=== PATIENT | female | born 1990 | race Caucasian/White ===

== ENCOUNTER 2017-09-03 18:46 | Emergency (ER) | payer OTHER, MEDICAID ==
[~2017-09-03] VITALS: Ht 160 cm; Wt 86.2 kg
[~2017-09-03 18:46] MED LIST: IBUPROFEN 600600 M1 PO; IBUPROFEN 800800 M1 PO; VALTREX 500 MG500 MG PO
[2017-09-03] MEDS ORDERED: FLEXERIL PO (19:00)
[2017-09-03 19:32] VITALS: BP 127/81
== END 2017-09-03 19:33 | disposition home or self-care (01) ==
LOC: M.ERS 18:46
DX: S49.82XA Other specified injuries of left shoulder and upper arm, initial encounter (principal); Y04.8XXA Assault by other bodily force, initial encounter; Y93.89 Activity, other specified; Y92.89 Other specified places as the place of occurrence of the external cause; Y99.8 Other external cause status

== ENCOUNTER 2017-11-05 07:49 | Inpatient (IN) | payer OTHER, MEDICAID ==
[~2017-11-05] VITALS: Ht 160 cm; Wt 91.6 kg
[2017-11-05 07:49] VITALS: BP 131/102
[~2017-11-05 07:49] MED LIST changes: +FLEXERIL PO
[2017-11-05 08:05] LABS: ABSOLUTE EOSINOPHILS 0.1 thou/uL (0.0-0.7); ABSOLUTE LYMPHOCYTES 0.9 thou/uL (0.8-5.3); ABSOLUTE MONOCYTES 0.6 thou/uL (0.0-1.2); ABSOLUTE NEUTROPHILS 6.9 thou/uL (1.6-8.1); BASOPHILS 0.2 %; EOSINOPHILS 1.1 %; HEMATOCRIT 43.7 % (37.0-47.0); LYMPHOCYTES 10.8 %; MCH 28.6 pg (26.0-34.0); MCHC 34.4 g/dL (28.0-37.0); MONOCYTES 6.8 %; MPV 9.2 fl. (7.2-11.1); NUCLEATED RBCS 0 /100WBC; PLATELET COUNT* 309 thou/uL (150-400); POLYS 81.1 %; RBC 5.27 mil/uL (4.20-5.00); WBC 8.5 thou/uL (4.0-11.0)
[2017-11-05] MEDS ORDERED: PRILOSEC OTC20 MG PO (08:11)
[2017-11-05 08:15] LABS: ANION GAP 15 mmol/L (7-16); BUN 18 mg/dL (7-18); CALCIUM 9.1 mg/dL (8.5-10.1); CHLORIDE 103 mmol/L (98-107); CO2 22 mmol/L (21-32); GLUCOSE 139 mg/dL (70-99); POTASSIUM 3.9 mmol/L (3.5-5.1); SODIUM 140 mmol/L (136-145)
[2017-11-05 08:22] LABS: ALBUMIN 3.8 g/dL (3.4-5.0); ALKALINE PHOSPHATASE 89 U/L (46-116); LIPASE 100 U/L (73-393); SGOT 104 U/L (15-37); SGPT 138 U/L (30-65); TOTAL BILIRUBIN 0.4 mg/dL (<0.1-1.0); TOTAL PROTEIN 7.9 g/dL (6.4-8.2); TROPONIN-I LEVEL <0.06 ng/mL (<0.06)
[2017-11-05] MEDS ORDERED: ZOFRAN ODT4 MG PO (10:01)
[2017-11-05] MEDS ORDERED: BENTYL 20 MG TA20 M1 PO (10:01)
[2017-11-05 11:20] LABS: URINE BILIRUBIN NEGATIVE (Negative); URINE BLOOD NEGATIVE (Negative); URINE CLARITY CLEAR; URINE COLOR YELLOW; URINE GLUCOSE-RANDOM NEGATIVE (Negative); URINE KETONES NEGATIVE (Negative); URINE LEUKOCYTES-REFLEX NEGATIVE (Negative); URINE NITRITE-REFLEX NEGATIVE (Negative); URINE PROTEIN NEGATIVE (Negative); URINE SPECIFIC GRAVITY <= 1.005 (1.005-1.030); URINE UROBILINOGEN 0.2 E.U./dl (0.2-1.0)
[2017-11-05 11:28] LABS: AMP/METHAMP Negative (Negative); BARBITURATES Negative (Negative); BENZODIAZEPINES Negative (Negative); COCAINE Negative (Negative); METHADONE Negative (Negative); OPIATES Negative (Negative); PCP Negative (Negative); THC Negative (Negative)
--- NOTE | 2017-11-05 16:01 | EKG ---
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
[2017-11-05 18:05] VITALS: BP 111/66
[2017-11-05 18:20] VITALS: BP 111/66
[2017-11-05 18:38] VITALS: BP 113/74
[2017-11-05 20:00] VITALS: BP 116/74
[2017-11-06] VITALS (7 sets, daily range): BP systolic 87–134; BP diastolic 47–88
[2017-11-06 05:45] LABS: HEMATOCRIT 39.4 % (37.0-47.0); HEMOGLOBIN 13.1 gm/dL (12.0-15.0); MCH 28.4 pg (26.0-34.0); MCHC 33.3 g/dL (28.0-37.0); MCV 85.2 fL (80.0-100.0); MPV 9.4 fl. (7.2-11.1); RBC 4.62 mil/uL (4.20-5.00); WBC 3.6 thou/uL (4.0-11.0)
[2017-11-06 06:08] LABS: CALCIUM 8.3 mg/dL (8.5-10.1); CREATININE 0.8 mg/dL (0.6-1.3); MAGNESIUM 2.2 mg/dL (1.8-2.4); POTASSIUM 4.2 mmol/L (3.5-5.1); TOTAL BILIRUBIN 0.2 mg/dL (<0.1-1.0); TOTAL PROTEIN 5.7 g/dL (6.4-8.2)
--- NOTE | 2017-11-06 16:00 | 2DMMODE ---
[place] [address] 2 D/M-MODE ECHOCARDIOGRAM Name: AARON DUQUE Room: [address] IN [facility]#: [id number] Admission: 11/05/17 Attend Phys: Daniel Lopez, Discharge: Date of : 89 Date of Service: 11/06/17 1559 Report #: [id number] THIS REPORT FOR: //name// APPROVED REPORT Study performed: 11/06/2017 11:41:32 EXAM: Comprehensive 2D, Doppler, and color-flow Echocardiogram Patient Location: In-Patient Room #: [facility] Status: routine BSA: 1.91 HR: 62 bpm BP: 107/61 mmHg Rhythm: NSR Other Information Study Quality: Good Indications Dyspnea Syncope NAUSEA 2D Dimensions LVEF(%): 60.67 (>50%) IVSd: 10.08 (7-11mm) LVOT Diam: 18.18 (18-24mm) LVDd: 47.50 mm PWd: 10.08 (7-11mm) Ascending Ao: 25.65 (22-36mm) LVDs: 32.10 (25-40mm) Aortic Root: 24.83 mm Smith's LVEF: 60.67 % Volumes Left Atrial Volume (Systole) LA ESV Index: 24.70 mL/m2 Aortic Valve AoV Peak Kaushik.: 1.28 m/s AO Peak Gr.: 6.59 mmHg LVOT Max P.94 mmHg AO Mean Gr.: 3.58 mmHg LVOT Mean P.86 mmHg LVOT Max V: 0.99 m/s AO V2 VTI: 24.65 cm LVOT Mean V: 0.62 m/s MIGUELITO (VTI): 2.18 cm2 LVOT V1 VTI: 20.69 [place] [address] 2 D/M-MODE ECHOCARDIOGRAM Name: AARON DUQUE Room: [address] IN [facility]#: [id number] Admission: 11/05/17 Attend Phys: Daniel Lopez, Discharge: Date of : 89 Date of Service: 11/06/17 1559 Report #: [id number] Mitral Valve E/A Ratio: 1.69 MV Decel. Time: 192.69 ms MV E Max Kaushik.: 0.84 m/s MV PHT: 55.88 ms MVA (PHT): 3.94 cm2 TDI E/Lateral E': 4.67 E/Medial E': 8.40 Medial E' Kaushik.: 0.10 m/s Lateral E' Kaushik.: 0.18 m/s Pulmonary Valve PV Peak Kaushik.: 0.90 m/s PV Peak Gr.: 3.27 mmHg Left Ventricle The left ventricle is normal size. There is normal LV segmental wall motion. There is normal left ventricular wall thickness. Left ventricular systolic function is normal. The left ventricular ejection fraction is within the normal range. LVEF is 60-65%. The left ventricular diastolic function is normal. Right Ventricle The right ventricle is normal size. The right ventricular systolic function is normal. Atria The left atrium size is normal. The right atrium size is normal. Aortic Valve The aortic valve is normal in structure. No aortic regurgitation is present. There is no aortic valvular stenosis. Mitral Valve The mitral valve is normal in structure. There is no mitral valve regurgitation noted. No evidence of mitral valve stenosis. Tricuspid Valve The tricuspid valve is normal in structure. Unable to assess PA pressure. Trace tricuspid regurgitation. Pulmonic Valve The pulmonary valve is normal in structure. Mild [place] [address] 2 D/M-MODE ECHOCARDIOGRAM Name: AARON DUQUE Avelino Room: [address] IN [facility]#: [id number] Admission: 11/05/17 Attend Phys: Daniel Lopez, Discharge: Date of : 89 Date of Service: 11/06/17 1559 Report #: [id number] Great Vessels The aortic root is normal in size. IVC is normal in size and collapses with >50% inspiration Pericardium There is no pericardial effusion. <Conclusion> The left ventricle is normal size. There is normal left ventricular wall thickness. Left ventricular systolic function is normal. The left ventricular ejection fraction is within the normal range. LVEF is 60-65%. The left ventricular diastolic function is normal. The right ventricle is normal size. The left atrium size is normal. The aortic valve is normal in structure. The mitral valve is normal in structure. The tricuspid valve is normal in structure. IVC is normal in size and collapses with >50% inspiration There is no pericardial effusion. There is normal LV segmental wall motion. <ELECTRONICALLY SIGNED> By: Sotero Romeo MD, FACC 11/06/17 1559 1559 1559 Sotero Romeo MD, FACC /INF
[2017-11-07 04:58] LABS: CALCIUM 8.2 mg/dL (8.5-10.1); CREATININE 0.7 mg/dL (0.6-1.3); POTASSIUM 4.1 mmol/L (3.5-5.1); TOTAL BILIRUBIN 0.3 mg/dL (<0.1-1.0); TOTAL PROTEIN 5.6 g/dL (6.4-8.2)
[2017-11-07 08:40] VITALS: BP 120/61
[2017-11-07 14:50] VITALS: BP 112/60
[2017-11-07 21:00] VITALS: BP 115/62
[2017-11-08 07:10] LABS: HEPATITIS B SURFACE AG Negative (Negative)
[2017-11-08 08:30] VITALS: BP 96/43
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
[2017-11-08 17:00] VITALS: BP 108/66
[2017-11-08 19:40] VITALS: BP 112/58
[2017-11-09 07:45] VITALS: BP 117/72
[2017-11-09 08:10] VITALS: BP 112/58
[2017-11-09] MEDS ORDERED: REGLAN 5 MG TAB5 MG PO (09:06)
[2017-11-09] MEDS ORDERED: ZOFRAN ODT4 MG PO (09:06)
--- NOTE | 2017-11-23 13:09 | CON ---
[address] [address] CONSULTATION Name: AARON DUQUE Room: [address]#: [id number] Admission: 11/05/17 Attend Phys: Daniel Lopez MD Discharge: 11/09/17 Date of : 92 Report #: [id number] THIS REPORT FOR: //name// CC: Daniel Sommers DATE OF SERVICE: 11/06/2017 ADDENDUM This is a 26-year-old female with 2-week history of nausea, vomiting and epigastric pain. She reports that she is usually constipated, but this does not worsen her symptoms of nausea, vomiting. The patient complains of epigastric pain, but denies any dysphagia or dyspepsia. She denies any previous history of this type of symptoms. We will go ahead and perform an upper endoscopy. If this was negative, we may consider a gastric emptying test. Note that the patient has history of gallbladder surgery due to gallbladder sludge about 3 years ago. <ELECTRONICALLY SIGNED> By: Jackie Jones MD 11/23/17 1309 1341 1836Jackie Jones MD /nt
--- NOTE | 2017-11-23 13:09 | CON ---
[address] [address] CONSULTATION Name: AARON DUQUE Room: [address]#: [id number] Admission: 11/05/17 Attend Phys: Daniel Lopez MD Discharge: 11/09/17 Date of : 89 Report #: [id number] THIS REPORT FOR: //name// CC: Daniel Sommers [facility] DICTATED BY: Bela Whatley [facility] DATE OF SERVICE: 11/06/2017 Please note at the time of this dictation, the patient was seen and physically examined by myself. REASON FOR CONSULTATION: Nausea, vomiting, abdominal pain. HISTORY OF PRESENT ILLNESS: This 26-year-old female presented to the Emergency Room after having a syncopal episode yesterday morning while at work. She states that she has been sick to her stomach for the past several days; however, she tells me for the last 2 weeks, she has had nausea, vomiting and abdominal pain and a slight cough with some so called chest discomfort during this timeframe. She states it is nonradiating at this time. She denies any fever, chills or any diarrhea. The patient states she had an upper scope done many years ago up in [place] when she was still in school. She does not recall what it showed at this time. In talking with the patient, she mentions that she has a history of migraines and has been having more migraines here lately than what she has had in the past. The patient did have her gallbladder out years ago related to sludge. She states with her nausea and vomiting, she denies any hematemesis or coffee-ground emesis at this time and denies any NSAID use. She states her bowels are soft and formed and move daily and no issues with diarrhea. ALLERGIES: No known drug allergies. MEDICATIONS: From home include Prilosec 20 mg daily. PAST SURGICAL HISTORY: Cholecystectomy, tonsil and adenoidectomy, and tubal ligation. FAMILY HISTORY: Negative. SOCIAL HISTORY: Denies any tobacco or illegal drug use and alcohol use is only socially on occasion. REVIEW OF SYSTEMS: Twelve-point review of systems essentially negative except what [place] [address] CONSULTATION Name: AARON DUQUE Room: [address]#: [id number] Admission: 11/05/17 Attend Phys: Daniel Lopez MD Discharge: 11/09/17 Date of : 89 Report #: [id number] PHYSICAL EXAMINATION: VITAL SIGNS: Temperature 36.9, pulse 84, respirations 18, blood pressure 95/53. HEART: Regular rate and rhythm. LUNGS: Clear. ABDOMEN: Soft, positive bowel sounds in all 4 quadrants with some mild epigastric tenderness noted to palpation. LABORATORY DATA: Hemoglobin 13.1, hematocrit 39.4, white count is 3.6, platelets 251. Sodium 144, potassium 4.2, chloride 109, CO2 27, BUN is 8, creatinine 0.8, GFR is 88 and glucose is 93. LFTs: Total bilirubin 0.2, alkaline phosphatase 68, ALT is [address] is 58[address] CT of the abdomen and pelvis essentially negative. Chest x-ray negative as well. IMPRESSION: 1. Nausea and vomiting for 2 weeks. 2. Abdominal pain. 3. History of migraines and more frequently in the last month or so. PLAN: 1. Scopolamine patch to help with the nausea and vomiting. 2. Ultrasound of the abdomen. 3. Consider EGD if all is negative above and plans for tomorrow. 4. Further recommendations to be made after the above have been noted. Thank you for allowing us to participate in this patient's care. Please do not hesitate to call with any questions in regard to this consult. <ELECTRONICALLY SIGNED> By: Jackie Jones MD 11/23/17 1309 1324 1843Jackie Jones MD /nt
--- NOTE | 2018-01-24 13:12 | PATH ---
[facility] [address] [place] [address] PATHOLOGY RPT PROCEDURE Name: AARON DUQUE Room: [address] IN M.R.#: [id number] Admission: 11/05/17 Date of : 89 Discharge: 11/09/17 Report #: [id number] Path Case #: [id number] [facility] Accession Number: [id number] No. of containers..01 Tissue . 01 Material submitted: . BIOPSY,SUBMUCOSAL NODULE DUODENUM . 02 Diagnosis: Duodenal mucosa and submucosa (biopsy submucosal nodule): - Moderate subacute and chronic inflammation of lamina propria, villus height to width ratio is 3-4:1. - Focal submucosal glandular hyperplasia. LBQ/11/10/2017 . 02 Comment: We find no evidence of high grade dysplasia or malignancy. (SALVATORE:wilfred; 11/09/2017) . 02 Electronically signed: . Eulogio Ellsworth MD, Pathologist NPI- [id number] . 01 Gross description: . Received in formalin labeled "Duque, Aaron, submucosal nodule duodenum biopsy" and consists of 2 soft luna tissue fragments each averaging 0.2 cm. They are entirely submitted as A1.(PASQUALE; 11/08/2017) /QMS . 02 Pathologist provided ICD-10: K29.80 . 02 CPT . 536827 A duplicate report has been generated due to demographic updates. Performed at: 01 [facility] [address] [id number] MD Aidan Beverly MD Phone: [phone] Performed at: [address] [id number] MD Eulogio Ellsworth MD Phone: [phone]
== END 2017-11-09 10:55 | disposition home or self-care (01) | DRG 312 ==
LOC: M.ERS 07:49 → M.TBA-ER 11:36 → M.2W 18:34 → M.3W 11-06 17:50
PROVIDERS: Emergency Medicine Emergency Medical Services; ADMIT Internal Medicine
PROC: B24BZZ4 Ultrasonography of Heart with Aorta, Transesophageal (ICD-10-PCS; principal; 2017-11-06)
PROC: 0DB98ZX Excision of Duodenum, Via Natural or Artificial Opening Endoscopic, Diagnostic (ICD-10-PCS; 2017-11-07)
DX: R55 Syncope and collapse (principal); K52.9 Noninfective gastroenteritis and colitis, unspecified; G43.909 Migraine, unspecified, not intractable, without status migrainosus; K75.81 Nonalcoholic steatohepatitis (NASH); E86.9 Volume depletion, unspecified; K21.0 Gastro-esophageal reflux disease with esophagitis; K31.89 Other diseases of stomach and duodenum; K42.9 Umbilical hernia without obstruction or gangrene; E66.9 Obesity, unspecified; Z90.49 Acquired absence of other specified parts of digestive tract; Z87.11 Personal history of peptic ulcer disease; Z68.35 Body mass index [BMI] 35.0-35.9, adult; Z79.899 Other long term (current) drug therapy

== ENCOUNTER 2017-12-28 23:48 | Emergency (ER) | payer OTHER, MEDICAID ==
[~2017-12-28] VITALS: Ht 160 cm; Wt 86.2 kg
[~2017-12-28 23:48] MED LIST changes: +BENTYL 20 MG TA20 M1 PO; +PRILOSEC OTC20 MG PO; +REGLAN 5 MG TAB5 MG PO; +ZOFRAN ODT4 MG PO
[2017-12-29 00:48] VITALS: BP 119/68
== END 2017-12-29 00:49 | disposition home or self-care (01) ==
LOC: M.ERS 23:48
DX: S61.412A Laceration without foreign body of left hand, initial encounter (principal); E66.9 Obesity, unspecified; Z68.33 Body mass index [BMI] 33.0-33.9, adult; W26.0XXA Contact with knife, initial encounter; Y93.G1 Activity, food preparation and clean up; Y92.89 Other specified places as the place of occurrence of the external cause; Y99.8 Other external cause status

== ENCOUNTER 2018-04-02 19:27 | Emergency (ER) | payer MEDICAID ==
[~2018-04-02] VITALS: Ht 160 cm; Wt 88.0 kg
[2018-04-02 19:54] LABS: URINE BLOOD NEGATIVE (Negative); URINE CLARITY CLEAR; URINE COLOR YELLOW; URINE GLUCOSE-RANDOM NEGATIVE (Negative); URINE LEUKOCYTES-REFLEX TRACE (Negative); URINE NITRITE-REFLEX NEGATIVE (Negative); URINE PROTEIN NEGATIVE (Negative); URINE SPECIFIC GRAVITY 1.015 (1.005-1.030)
[2018-04-02 19:56] LABS: URINE BILIRUBIN 1+ (Negative); URINE KETONES 3+ (Negative)
[2018-04-02 19:57] LABS: ACETEST (KETONE CONFIRMATORY) Moderate (Negative); ICTOTEST (BILI CONFIRMATORY) Negative (Negative)
[2018-04-02 20:17] LABS: SQUAMOUS >10 Many /LPF (0-3)
[2018-04-02 20:18] LABS: BACTERIA-REFLEX 1-9 Few /HPF (None Seen); CASTS None Seen /LPF (None Seen); CRYSTALS None Seen /LPF (None Seen); MUCUS 4-6 Moderate strn/LPF (None Seen); URINE RBC 0-2 Rare /HPF (0-2); URINE WBC-REFLEX 0-5 Rare /HPF (0-5)
[2018-04-02 20:22] LABS: ABSOLUTE BASOPHILS 0.1 thou/uL (0.0-0.2); ABSOLUTE EOSINOPHILS 0.2 thou/uL (0.0-0.7); ABSOLUTE MONOCYTES 0.6 thou/uL (0.0-1.2); ABSOLUTE NEUTROPHILS 6.5 thou/uL (1.6-8.1); BASOPHILS 1.1 %; EOSINOPHILS 1.5 %; HEMATOCRIT 45.8 % (37.0-47.0); HEMOGLOBIN 15.4 gm/dL (12.0-15.0); LYMPHOCYTES 28.9 %; MCH 28.6 pg (26.0-34.0); MCHC 33.7 g/dL (28.0-37.0); MCV 84.9 fL (80.0-100.0); MONOCYTES 5.8 %; MPV 9.2 fl. (7.2-11.1); NUCLEATED RBCS 0 /100WBC; POLYS 62.7 %; RBC 5.39 mil/uL (4.20-5.00); RDW-CV 13.9 % (10.5-14.5); WBC 10.4 thou/uL (4.0-11.0)
[2018-04-02 20:55] LABS: PLATELET COUNT* 348 thou/uL (150-400)
[2018-04-02 21:00] LABS: CALCIUM 8.6 mg/dL (8.5-10.1); CREATININE 0.7 mg/dL (0.6-1.3); POTASSIUM 3.4 mmol/L (3.5-5.1)
[2018-04-02 21:09] LABS: ALBUMIN 3.6 g/dL (3.4-5.0); TOTAL BILIRUBIN 0.6 mg/dL (<0.1-1.0); TOTAL PROTEIN 7.5 g/dL (6.4-8.2)
[2018-04-02] MEDS ORDERED: ATIVAN1 MG PO (22:44)
[2018-04-02] MEDS ORDERED: ZOFRAN ODT4 MG PO (22:44)
[2018-04-02] MEDS ORDERED: BUTALB-APAP-CA1 EACH PO (22:44)
[2018-04-02 23:15] VITALS: BP 95/55
== END 2018-04-02 23:16 | disposition home or self-care (01) ==
LOC: M.ERS 19:27
PROVIDERS: Personal Emergency Response Attendant
DX: R10.9 Unspecified abdominal pain (principal); G43.909 Migraine, unspecified, not intractable, without status migrainosus; R19.7 Diarrhea, unspecified; R07.9 Chest pain, unspecified; E66.9 Obesity, unspecified; Z68.34 Body mass index [BMI] 34.0-34.9, adult; Z90.49 Acquired absence of other specified parts of digestive tract

== ENCOUNTER 2018-05-20 15:29 | Emergency (ER) | payer OTHER ==
[~2018-05-20] VITALS: Ht 160 cm; Wt 86.2 kg
[~2018-05-20 15:29] MED LIST changes: +ATIVAN1 MG PO; +BUTALB-APAP-CA1 EACH PO
[2018-05-20] MEDS ORDERED: LINZESS72 MCG PO (15:40)
[2018-05-20 16:05] LABS: ABSOLUTE BASOPHILS 0.1 thou/uL (0.0-0.2); ABSOLUTE LYMPHOCYTES 2.4 thou/uL (0.8-5.3); ABSOLUTE MONOCYTES 0.6 thou/uL (0.0-1.2); ABSOLUTE NEUTROPHILS 4.2 thou/uL (1.6-8.1); BASOPHILS 0.9 %; EOSINOPHILS 0.5 %; HEMATOCRIT 41.9 % (37.0-47.0); LYMPHOCYTES 32.4 %; MCH 28.4 pg (26.0-34.0); MCHC 33.5 g/dL (28.0-37.0); MCV 84.8 fL (80.0-100.0); MONOCYTES 8.3 %; MPV 8.8 fl. (7.2-11.1); NUCLEATED RBCS 0 /100WBC; PLATELET COUNT* 358 thou/uL (150-400); POLYS 57.9 %; RBC 4.94 mil/uL (4.20-5.00); WBC 7.3 thou/uL (4.0-11.0)
[2018-05-20 16:16] LABS: CALCIUM 9.7 mg/dL (8.5-10.1); CREATININE 0.9 mg/dL (0.6-1.3); POTASSIUM 3.3 mmol/L (3.5-5.1)
[2018-05-20 16:21] LABS: ALBUMIN 4.5 g/dL (3.4-5.0); TOTAL BILIRUBIN 0.5 mg/dL (<0.1-1.0); TOTAL PROTEIN 8.7 g/dL (6.4-8.2)
[2018-05-20 16:21] LABS: URINE BLOOD NEGATIVE (Negative); URINE CLARITY CLEAR; URINE COLOR YELLOW; URINE GLUCOSE-RANDOM NEGATIVE (Negative); URINE LEUKOCYTES-REFLEX NEGATIVE (Negative); URINE NITRITE-REFLEX NEGATIVE (Negative); URINE PROTEIN 1+ (Negative); URINE SPECIFIC GRAVITY 1.025 (1.005-1.030); URINE UROBILINOGEN 0.2 E.U./dl (0.2-1.0)
[2018-05-20 16:25] LABS: URINE BILIRUBIN 1+ (Negative); URINE KETONES 3+ (Negative)
[2018-05-20 16:28] LABS: ICTOTEST (BILI CONFIRMATORY) Negative (Negative)
[2018-05-20 18:17] VITALS: BP 100/68
== END 2018-05-20 18:18 | disposition home or self-care (01) ==
LOC: M.ERS 15:29
PROVIDERS: Nurse Practitioner Family
DX: R10.30 Lower abdominal pain, unspecified (principal); R19.7 Diarrhea, unspecified; R42 Dizziness and giddiness; K58.9 Irritable bowel syndrome, unspecified; E66.9 Obesity, unspecified; Z68.33 Body mass index [BMI] 33.0-33.9, adult; Z90.49 Acquired absence of other specified parts of digestive tract

== ENCOUNTER 2018-10-22 09:43 | Emergency (ER) | payer OTHER ==
[~2018-10-22] VITALS: Ht 160 cm; Wt 84.4 kg
[~2018-10-22 09:43] MED LIST changes: +LINZESS72 MCG PO
[2018-10-22] MEDS ORDERED: AMITRIPTYLINE H25 M2 PO (09:59)
[2018-10-22] MEDS ORDERED: LOESTRIN1 EAC1 PO (09:59)
[2018-10-22 11:00] LABS: ABSOLUTE LYMPHOCYTES 1.7 thou/uL (0.8-5.3); ABSOLUTE MONOCYTES 0.5 thou/uL (0.0-1.2); ABSOLUTE NEUTROPHILS 3.1 thou/uL (1.6-8.1); BASOPHILS 0.4 %; EOSINOPHILS 0.7 %; HEMATOCRIT 42.1 % (37.0-47.0); HEMOGLOBIN 14.4 gm/dL (12.0-15.0); LYMPHOCYTES 31.8 %; MCHC 34.1 g/dL (28.0-37.0); MONOCYTES 8.9 %; MPV 8.8 fl. (7.2-11.1); NUCLEATED RBCS 0 /100WBC; PLATELET COUNT* 351 thou/uL (150-400); POLYS 58.2 %; RBC 4.95 mil/uL (4.20-5.00); RDW-CV 13.6 % (10.5-14.5); WBC 5.4 thou/uL (4.0-11.0)
[2018-10-22 11:05] LABS: URINE BILIRUBIN NEGATIVE (Negative); URINE BLOOD NEGATIVE (Negative); URINE CLARITY SL CLOUDY; URINE COLOR YELLOW; URINE GLUCOSE-RANDOM NEGATIVE (Negative); URINE KETONES 2+ (Negative); URINE LEUKOCYTES-REFLEX NEGATIVE (Negative); URINE NITRITE-REFLEX NEGATIVE (Negative); URINE PROTEIN NEGATIVE (Negative); URINE UROBILINOGEN 0.2 E.U./dl (0.2-1.0)
[2018-10-22 11:16] LABS: AMORPHOUS PHOSPHATES Moderate /LPF (None Seen); BACTERIA-REFLEX 1-9 Few /HPF (None Seen); MUCUS 0-3 Light strn/LPF (None Seen); SQUAMOUS 0-3 Few /LPF (0-3); URINE RBC 0-2 Rare /HPF (0-2); URINE WBC-REFLEX 0-5 Rare /HPF (0-5)
[2018-10-22 11:23] LABS: ALBUMIN 4.1 g/dL (3.4-5.0); CALCIUM 9.6 mg/dL (8.5-10.1); MAGNESIUM 1.9 mg/dL (1.8-2.4); POTASSIUM 3.1 mmol/L (3.5-5.1); TOTAL BILIRUBIN 0.3 mg/dL (<0.1-1.0); TOTAL PROTEIN 8.1 g/dL (6.4-8.2)
[2018-10-22] MEDS ORDERED: DIAZEPAM 2MG TAB2 MG PO (13:57)
[2018-10-22 14:31] VITALS: BP 105/59
== END 2018-10-22 14:31 | disposition home or self-care (01) ==
LOC: M.ERS 09:43
PROVIDERS: Personal Emergency Response Attendant
DX: E86.0 Dehydration (principal); R42 Dizziness and giddiness; E66.9 Obesity, unspecified; Z68.32 Body mass index [BMI] 32.0-32.9, adult; G89.29 Other chronic pain; Z90.49 Acquired absence of other specified parts of digestive tract

== ENCOUNTER → 2019-02-13 | Outpatient (CLI) | payer OTHER ==
[~2019-02-13] MED LIST changes: +AMITRIPTYLINE H25 M2 PO; +DIAZEPAM 2MG TAB2 MG PO; +LOESTRIN1 EAC1 PO
--- NOTE | 2019-02-14 12:53 | PF ---
[address] [address] PULMONARY FUNCTION REPORT Name: AARON DUQUE Room: [facility] MaikShefali#: [id number] Admission: 02/13/19 Attend Phys: Hanna Calhoun DO Discharge: Date of : 92 Report #: [id number] THIS REPORT FOR: //name// CC: Hanna Calhoun DO DATE OF SERVICE: 02/13/2019 ATTENDING PHYSICIAN: Dr. Hanna Calhoun. The patient is a 28-year-old female with cough and dyspnea. Full pulmonary function tests are indicated. Full PFTs were performed. Spirometry is within normal limits. She did have 21%-37% improvement after bronchodilator. Post-bronchodilator studies show an FEV1 of 2.8, FVC of 3.6, and a ratio of 80%. Her FEV1 was 91% of predicted after bronchodilator. Again, she did have a 20% improvement in FEV1. Peak flow and CRE92-22 also improved 37%-57% after bronchodilator. Lung volumes performed via plethysmography were within normal limits. Diffusion is within normal limits. IMPRESSION: Abnormalities suggest mild obstructive airways disease with moderate reversibility on bronchodilator response noted. Could be consistent with early onset asthma and reactive airways disease. No complications to the above procedure. <ELECTRONICALLY SIGNED> By: Duran Nagel MD 02/14/19 1253 1334 [id number] brian Man
== END ==
LOC: M.MRI 08:30
DX: M51.24 Other intervertebral disc displacement, thoracic region (principal); R06.02 Shortness of breath; Z88.8 Allergy status to other drugs, medicaments and biological substances; Z87.898 Personal history of other specified conditions

== ENCOUNTER → 2019-02-27 | Outpatient (CLI) | payer OTHER ==
[~2019-02-27] MED LIST changes: +VALIUM2 MG PO
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
== END ==
LOC: M.PC 04:46
DX: M54.6 Pain in thoracic spine (principal); J45.909 Unspecified asthma, uncomplicated; R10.9 Unspecified abdominal pain; K82.8 Other specified diseases of gallbladder; Z79.899 Other long term (current) drug therapy; Z88.8 Allergy status to other drugs, medicaments and biological substances; Z90.49 Acquired absence of other specified parts of digestive tract

== ENCOUNTER → 2019-03-20 | Outpatient (CLI) | payer OTHER ==
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
== END | disposition home or self-care (01) ==
LOC: M.PC 03-06 09:20
DX: M51.24 Other intervertebral disc displacement, thoracic region (principal); G89.29 Other chronic pain; R10.9 Unspecified abdominal pain; J45.909 Unspecified asthma, uncomplicated; M19.90 Unspecified osteoarthritis, unspecified site; D64.9 Anemia, unspecified; Z98.890 Other specified postprocedural states; Z79.899 Other long term (current) drug therapy; Z88.8 Allergy status to other drugs, medicaments and biological substances

== ENCOUNTER 2020-05-12 18:41 | Emergency (ER) | payer OTHER ==
[~2020-05-12] VITALS: Ht 160 cm; Wt 81.7 kg
[2020-05-12] MEDS ORDERED: ZANAFLEX4 MG PO (19:32)
[2020-05-12] MEDS ORDERED: NORCO 5-325 TA1 EAC2 PO (19:32)
[2020-05-12] MEDS ORDERED: MEDROLDOSEPACK PO (19:34)
[2020-05-12 19:56] VITALS: BP 129/78
== END 2020-05-12 19:56 | disposition home or self-care (01) ==
LOC: M.ERS 18:41
DX: S76.011A Strain of muscle, fascia and tendon of right hip, initial encounter (principal); G89.29 Other chronic pain; K58.9 Irritable bowel syndrome, unspecified; E66.9 Obesity, unspecified; Z68.31 Body mass index [BMI] 31.0-31.9, adult; Z88.8 Allergy status to other drugs, medicaments and biological substances; Z90.49 Acquired absence of other specified parts of digestive tract; Z98.51 Tubal ligation status; X50.9XXA Other and unspecified overexertion or strenuous movements or postures, initial encounter; Y93.89 Activity, other specified; Y92.89 Other specified places as the place of occurrence of the external cause; Y99.8 Other external cause status

== ENCOUNTER → 2020-05-19 | Outpatient (CLI) | payer OTHER ==
[~2020-05-19] MED LIST changes: +MEDROLDOSEPACK PO; +NORCO 5-325 TA1 EAC2 PO; +ZANAFLEX4 MG PO
[2020-05-19 16:31] LABS: ABSOLUTE BASOPHILS 0.1 thou/uL (0.0-0.2); ABSOLUTE EOSINOPHILS 0.1 thou/uL (0.0-0.7); ABSOLUTE LYMPHOCYTES 3.2 thou/uL (0.8-5.3); ABSOLUTE MONOCYTES 0.9 thou/uL (0.0-1.2); ABSOLUTE NEUTROPHILS 7.6 thou/uL (1.6-8.1); BASOPHILS 0.7 %; EOSINOPHILS 0.4 %; HEMATOCRIT 40.3 % (37.0-47.0); HEMOGLOBIN 13.6 gm/dL (12.0-15.0); LYMPHOCYTES 27.1 %; MCH 28.8 pg (26.0-34.0); MCHC 33.8 g/dL (28.0-37.0); MCV 85.3 fL (80.0-100.0); MONOCYTES 7.4 %; MPV 8.2 fl. (7.2-11.1); NUCLEATED RBCS 0 /100WBC; PLATELET COUNT* 379 thou/uL (150-400); POLYS 64.4 %; RBC 4.73 mil/uL (4.20-5.00); WBC 11.8 thou/uL (4.0-11.0)
[2020-05-19 16:43] LABS: ALBUMIN 4.2 g/dL (3.4-5.0); ALKALINE PHOSPHATASE 69 U/L (46-116); ANION GAP 9 mmol/L (7-16); BUN 17 mg/dL (7-18); CALCIUM 9.4 mg/dL (8.5-10.1); CHLORIDE 100 mmol/L (98-107); CHOLESTEROL 169 mg/dL (<200); CO2 30 mmol/L (21-32); GLUCOSE 98 mg/dL (70-99); HDL CHOLESTEROL 52 mg/dL (>40); LDL CHOLESTEROL 106 mg/dL (<100); POTASSIUM 3.7 mmol/L (3.5-5.1); SERUM ASSESSMENT Clear; SGOT 21 U/L (15-37); SGPT 39 U/L (30-65); SODIUM 139 mmol/L (136-145); TC:HDL 3.3 Ratio (Not establshd); TOTAL BILIRUBIN 0.5 mg/dL (<0.1-1.0); TOTAL PROTEIN 8.6 g/dL (6.4-8.2); TRIGLYCERIDE 58 mg/dL (<150); VLDL 12 mg/dL (<40)
[2020-05-20 03:06] LABS: GLYCOHEMOGLOBIN (HGB A1C) 5.7 % (4.8-5.6)
== END ==
LOC: M.LAB 15:57
PROVIDERS: ATTEND Family Medicine
DX: Z13.1 Encounter for screening for diabetes mellitus (principal); Z00.00 Encounter for general adult medical examination without abnormal findings; Z13.220 Encounter for screening for lipoid disorders; R63.5 Abnormal weight gain

== ENCOUNTER → 2020-08-25 | Outpatient (CLI) | payer OTHER ==
[2020-08-25 12:13] LABS: ABSOLUTE EOSINOPHILS 0.1 thou/uL (0.0-0.7); ABSOLUTE LYMPHOCYTES 1.8 thou/uL (0.8-5.3); ABSOLUTE MONOCYTES 0.6 thou/uL (0.0-1.2); ABSOLUTE NEUTROPHILS 3.5 thou/uL (1.6-8.1); BASOPHILS 0.6 %; EOSINOPHILS 1.2 %; HEMOGLOBIN 13.6 gm/dL (12.0-15.0); LYMPHOCYTES 30.4 %; MCHC 33.1 g/dL (28.0-37.0); MCV 87.4 fL (80.0-100.0); MONOCYTES 9.1 %; MPV 7.9 fl. (7.2-11.1); NUCLEATED RBCS 0 /100WBC; PLATELET COUNT* 389 thou/uL (150-400); POLYS 58.7 %; RDW-CV 13.6 % (10.5-14.5)
[2020-08-25 12:40] LABS: ALBUMIN 3.9 g/dL (3.4-5.0); CALCIUM 9.6 mg/dL (8.5-10.1); CREATININE 0.7 mg/dL (0.6-1.3); POTASSIUM 3.9 mmol/L (3.5-5.1); TOTAL BILIRUBIN 0.3 mg/dL (<0.1-1.0); TOTAL PROTEIN 7.1 g/dL (6.4-8.2)
[2020-08-26 03:06] LABS: GLYCOHEMOGLOBIN (HGB A1C) 5.6 % (4.8-5.6)
== END ==
LOC: M.LAB 11:56
PROVIDERS: ATTEND Family Medicine
DX: R73.03 Prediabetes (principal)

== ENCOUNTER → 2021-01-24 | Outpatient (CLI) | payer OTHER ==
[2021-01-24 12:19] LABS: ABSOLUTE BASOPHILS 0.1 thou/uL (0.0-0.2); ABSOLUTE EOSINOPHILS 0.2 thou/uL (0.0-0.7); ABSOLUTE MONOCYTES 0.5 thou/uL (0.0-1.2); ABSOLUTE NEUTROPHILS 4.8 thou/uL (1.6-8.1); BASOPHILS 0.7 %; EOSINOPHILS 2.4 %; HEMATOCRIT 39.8 % (37.0-47.0); HEMOGLOBIN 13.8 gm/dL (12.0-15.0); LYMPHOCYTES 26.1 %; MCH 30.4 pg (26.0-34.0); MCHC 34.6 g/dL (28.0-37.0); MCV 87.7 fL (80.0-100.0); MONOCYTES 6.4 %; MPV 7.8 fl. (7.2-11.1); NUCLEATED RBCS 0 /100WBC; PLATELET COUNT* 399 thou/uL (150-400); POLYS 64.4 %; RBC 4.54 mil/uL (4.20-5.00); RDW-CV 13.6 % (10.5-14.5); WBC 7.5 thou/uL (4.0-11.0)
[2021-01-24 12:53] LABS: ALBUMIN 4.3 g/dL (3.4-5.0); CALCIUM 9.2 mg/dL (8.5-10.1); CREATININE 0.8 mg/dL (0.6-1.3); TOTAL BILIRUBIN 0.5 mg/dL (<0.1-1.0); TOTAL PROTEIN 8.2 g/dL (6.4-8.2)
== END ==
LOC: M.LAB 12:00
PROVIDERS: ATTEND Family Medicine
DX: Z00.00 Encounter for general adult medical examination without abnormal findings (principal); R53.82 Chronic fatigue, unspecified; R20.0 Anesthesia of skin; Z68.31 Body mass index [BMI] 31.0-31.9, adult

== ENCOUNTER → 2021-02-01 | Outpatient (CLI) | payer OTHER | LOC: M.MRI 07:15 | PROVIDERS: ATTEND Family Medicine | DX: G45.9 Transient cerebral ischemic attack, unspecified (principal); R20.0 Anesthesia of skin; M54.2 Cervicalgia ==